=== PATIENT | female | born 1955 | race Caucasian/White ===

== ENCOUNTER → 2018-01-31 | Outpatient (CLI) | payer OTHER ==
[~2018-01-31] MED LIST: ATOR20 PO; Diovan Hct 80-1 EACH PO; ESCI10 PO; HUMIRA10 MG/0.2 SQ; Metformin HCl1000 MG PO
== END | disposition home or self-care (01) ==
LOC: PLD 07:19 → LAB SHORT 07:19
DX: D48.5 Neoplasm of uncertain behavior of skin (principal)
CPT/HCPCS: 88305

== ENCOUNTER → 2019-01-03 | Outpatient (CLI) | payer OTHER ==
[2019-01-03 14:15] LABS: Stool Occult Bld Immuno 1 Positive (NEGATIVE)
== END | disposition home or self-care (01) ==
LOC: LAB EV 06:30
PROVIDERS: Physician Assistant
DX: D64.9 Anemia, unspecified (principal)
CPT/HCPCS: 82274

== ENCOUNTER 2019-01-20 09:23 | Day surgery (SDC) | payer OTHER ==
[~2019-01-20] VITALS: Ht 162.6 cm; Wt 95.9 kg
[2019-01-20] MEDS ORDERED: ACET500 (10:16)
[2019-01-20] MEDS ORDERED: IRBESARTAN-HCT1 EACH (10:16)
[2019-01-20] MEDS ORDERED: BENZ100A (10:17)
== END 2019-01-20 12:40 | disposition home or self-care (01) ==
LOC: ORSCSDS 09:23
PROVIDERS: Internal Medicine Gastroenterology
PROC: 0D598ZZ Destruction of Duodenum, Via Natural or Artificial Opening Endoscopic (ICD-10-PCS; principal; 2019-01-20 11:00)
PROC: 0D568ZZ Destruction of Stomach, Via Natural or Artificial Opening Endoscopic (ICD-10-PCS; principal; 2019-01-20 11:00)
DX: R19.5 Other fecal abnormalities (principal); K31.811 Angiodysplasia of stomach and duodenum with bleeding; R11.0 Nausea; D50.9 Iron deficiency anemia, unspecified; R10.33 Periumbilical pain; K74.60 Unspecified cirrhosis of liver; E11.9 Type 2 diabetes mellitus without complications; I10 Essential (primary) hypertension; E78.5 Hyperlipidemia, unspecified; G47.30 Sleep apnea, unspecified; E66.01 Morbid (severe) obesity due to excess calories; Z68.37 Body mass index [BMI] 37.0-37.9, adult
CPT/HCPCS: 82947; J1980; J2250; J2704; J7120

== ENCOUNTER 2019-01-31 08:50 | Day surgery (SDC) | payer OTHER ==
[~2019-01-31] VITALS: Ht 162.6 cm; Wt 97.8 kg
[~2019-01-31 08:50] MED LIST changes: +ACET500; +BENZ100A; +IRBESARTAN-HCT1 EACH
[2019-01-31] MEDS ORDERED: OTEZLA30 MG (09:21)
[2019-01-31] MEDS ORDERED: IRON150C ×2 (09:21→09:22)
== END 2019-01-31 10:15 | disposition home or self-care (01) ==
LOC: ORSCSDS 08:50
PROVIDERS: Anesthesiology
PROC: 3E0R33Z Introduction of Anti-inflammatory into Spinal Canal, Percutaneous Approach (ICD-10-PCS; principal; 2019-01-31 10:00)
DX: M51.16 Intervertebral disc disorders with radiculopathy, lumbar region (principal); M53.3 Sacrococcygeal disorders, not elsewhere classified; E78.00 Pure hypercholesterolemia, unspecified; G47.33 Obstructive sleep apnea (adult) (pediatric); I10 Essential (primary) hypertension; E11.9 Type 2 diabetes mellitus without complications; E66.01 Morbid (severe) obesity due to excess calories; Z68.37 Body mass index [BMI] 37.0-37.9, adult; Z79.84 Long term (current) use of oral hypoglycemic drugs; Z79.899 Other long term (current) drug therapy
CPT/HCPCS: J1040

== ENCOUNTER 2019-02-21 11:46 | Day surgery (SDC) | payer OTHER ==
[~2019-02-21] VITALS: Ht 162.6 cm; Wt 95.8 kg
[~2019-02-21 11:46] MED LIST changes: +IRON150C; +OTEZLA30 MG
--- NOTE | 2019-02-21 12:34 | NUR ---
02/21/19 1234 Jose Luis Beal 1ST IV ATTEMPT IN RH UNSUCCESSFUL, ORSC.BDK 2ND IV ATTEMPT IN RW UNSUCCESSFUL, ORSC.STEVE 3RD IV ATTEMPT IN RAC SUCCESSFUL, ORSC.STEVE
== END 2019-02-21 14:03 | disposition home or self-care (01) ==
LOC: ORSCSDS 11:46
PROVIDERS: Internal Medicine Gastroenterology
PROC: 0D568ZZ Destruction of Stomach, Via Natural or Artificial Opening Endoscopic (ICD-10-PCS; principal; 2019-02-21 13:00)
DX: K31.819 Angiodysplasia of stomach and duodenum without bleeding (principal); R19.5 Other fecal abnormalities; D50.9 Iron deficiency anemia, unspecified; K74.69 Other cirrhosis of liver; K76.6 Portal hypertension; K31.89 Other diseases of stomach and duodenum; E11.9 Type 2 diabetes mellitus without complications; G47.33 Obstructive sleep apnea (adult) (pediatric)
CPT/HCPCS: 82947; J2704; J7120

== ENCOUNTER → 2019-05-20 | Outpatient (CLI) | payer MEDICARE ==
[2019-05-23 14:23] LABS: Stool Occult Bld Immuno 1 Positive (NEGATIVE); Stool Occult Bld Immuno 2 Positive (NEGATIVE)
== END | disposition home or self-care (01) ==
LOC: LAB 12:30 → LAB SHORT 12:30
PROVIDERS: Internal Medicine Gastroenterology
DX: D50.9 Iron deficiency anemia, unspecified (principal)
CPT/HCPCS: 82274

== ENCOUNTER 2019-09-17 07:34 | Day surgery (SDC) | payer MEDICARE, BC ==
[~2019-09-17] VITALS: Ht 162.6 cm; Wt 92.9 kg
[2019-09-17] MEDS ORDERED: AZELASTINE137 MCG/0. (08:33)
[2019-09-17] MEDS ORDERED: SPIR50 PO (08:34)
== END 2019-09-17 08:25 | disposition home or self-care (01) ==
LOC: ORSCSDS 07:34
PROVIDERS: Anesthesiology
PROC: 3E0R33Z Introduction of Anti-inflammatory into Spinal Canal, Percutaneous Approach (ICD-10-PCS; principal; 2019-09-17 08:30)
DX: M51.16 Intervertebral disc disorders with radiculopathy, lumbar region (principal); M53.3 Sacrococcygeal disorders, not elsewhere classified; E11.9 Type 2 diabetes mellitus without complications; I10 Essential (primary) hypertension; E78.00 Pure hypercholesterolemia, unspecified; G47.33 Obstructive sleep apnea (adult) (pediatric); Z79.84 Long term (current) use of oral hypoglycemic drugs; Z79.899 Other long term (current) drug therapy
CPT/HCPCS: J1040; J7040

== ENCOUNTER → 2020-02-22 | Outpatient (CLI) | payer MEDICARE, BC ==
[~2020-02-22] MED LIST changes: +AZELASTINE137 MCG/0.; +SPIR50 PO
[2020-02-23 13:05] LABS: Microalb/Creat Ratio UR, Rand 12.768 mg/g (0.000-30.000); Microalbumin, Random Urine 14.3 mg/L (0.000-20.000)
== END ==
LOC: LAB SHORT 17:20 → LAB 17:20
PROVIDERS: Family Medicine
DX: I10 Essential (primary) hypertension (principal)
CPT/HCPCS: 82043; 82570

== ENCOUNTER → 2021-09-20 | Outpatient (CLI) | payer MEDICARE, BC ==
[2021-09-20 08:42] LABS: BASOPHILS ABSOLUTE AUTO 0.06 K/mm3 (0.00-0.23); BASOPHILS PERCENT AUTO 1 % (0-2); EOSINOPHILS ABSOLUTE AUTO 0.17 K/mm3 (0.00-0.68); EOSINOPHILS PERCENT AUTO 2 % (0-6); Hematocrit 36.3 % (33.0-51.0); Hemoglobin 11.7 g/dL (11.5-16.0); IMMATURE GRAN ABSOLUTE AUTO 0.02 K/mm3 (0.00-0.10); IMMATURE GRAN PERCENT AUTO 0 % (0-1); LYMPHOCYTES ABSOLUTE AUTO 0.95 K/mm3 (0.84-5.20); LYMPHOCYTES PERCENT AUTO 9 % (21-46); MONOCYTES ABSOLUTE AUTO 0.68 K/mm3 (0.16-1.47); MONOCYTES PERCENT AUTO 7 % (4-13); Mean Corpuscular HGB 29.1 pg (26.0-34.0); Mean Corpuscular HGB Conc 32.2 g/dL (31.5-36.5); Mean Corpuscular Volume 90 fL (80-100); Mean Platelet Volume 10.5 fL (9.1-12.4); NEUTROPHILS ABSOLUTE AUTO 8.22 K/mm3 (1.96-9.15); NEUTROPHILS PERCENT AUTO 81 % (41-73); Platelet Count 112 K/mm3 (150-400); RDW Coefficient Variation 17.2 % (11.7-14.2); RDW Standard Deviation 56.5 fL (35.1-46.3); Red Blood Cell Count 4.02 M/mm3 (3.80-5.20)
[2021-09-20 09:01] LABS: Albumin, Blood 3.2 g/dL (3.4-5.0); Albumin/Globulin Ratio 0.8 (0.8-1.8); Bun/Creatinine Ratio 17.7 (12.0-20.0); Calcium, Blood 8.6 mg/dL (8.5-10.1); Creatinine, Blood 1.3 mg/dL (0.40-1.00); Globulin, Blood 3.9 g/dL (2.2-4.0); Potassium, Blood 4.4 mmol/L (3.5-5.5); Total Protein, Blood 7.1 g/dL (6.4-8.2)
== END | disposition home or self-care (01) ==
LOC: LAB 08:38 → LAB SHORT 08:38
PROVIDERS: Physician Assistant Medical
DX: K80.20 Calculus of gallbladder without cholecystitis without obstruction (principal); R11.0 Nausea
CPT/HCPCS: 80053; 83690; 85025

== ENCOUNTER → 2021-11-22 | Outpatient (CLI) | payer MEDICARE, BC | END | disposition home or self-care (01) | LOC: LAB SHORT 09:09 | DX: R23.4 Changes in skin texture (principal) | CPT/HCPCS: 88305 ==

== ENCOUNTER 2022-03-15 09:21 | Day surgery (SDC) | payer MEDICARE, BC ==
[2022-03-15] MEDS ORDERED: HYDROCHLOROTH12.5 MG PO (11:15)
[2022-03-15] MEDS ORDERED: MIDO5 PO (11:18)
[2022-03-15] MEDS ORDERED: ONDA4ODT MM (11:18)
[2022-03-15] MEDS ORDERED: FUROSEMIDE20 MG PO (11:19)
[2022-03-15] MEDS ORDERED: OXYC5 PO (11:19)
[2022-03-15] MEDS ORDERED: POTCHL20ER PO (11:20)
[2022-03-15] MEDS ORDERED: Protopic100 G1 TOP (11:22)
== END 2022-03-15 12:35 | disposition home or self-care (01) ==
LOC: US 09:21 → ATC 09:21 → US 03-17 09:00
DX: K74.60 Unspecified cirrhosis of liver (principal); R18.8 Other ascites
CPT/HCPCS: 49083; 87070; 87075; 87205; 96365; P9046

== ENCOUNTER 2022-04-12 09:19 | Emergency (ER) | payer MEDICARE, BC ==
[~2022-04-12] VITALS: Ht 162.6 cm; Wt 99.8 kg
[~2022-04-12 09:19] MED LIST changes: +FUROSEMIDE20 MG PO; +HYDROCHLOROTH12.5 MG PO; +MIDO5 PO; +ONDA4ODT MM; +OXYC5 PO; +POTCHL20ER PO; +Protopic100 G1 TOP
[2022-04-12 10:02] LABS: BASOPHILS ABSOLUTE AUTO 0.05 K/mm3 (0.00-0.23); BASOPHILS PERCENT AUTO 1 % (0-2); EOSINOPHILS PERCENT AUTO 1 % (0-6); Hemoglobin 11.4 g/dL (11.5-16.0); IMMATURE GRAN ABSOLUTE AUTO 0.05 K/mm3 (0.00-0.10); IMMATURE GRAN PERCENT AUTO 1 % (0-1); LYMPHOCYTES ABSOLUTE AUTO 1.15 K/mm3 (0.84-5.20); LYMPHOCYTES PERCENT AUTO 13 % (21-46); MONOCYTES ABSOLUTE AUTO 0.75 K/mm3 (0.16-1.47); MONOCYTES PERCENT AUTO 8 % (4-13); Mean Corpuscular HGB 33.5 pg (26.0-34.0); Mean Corpuscular HGB Conc 32.6 g/dL (31.5-36.5); Mean Corpuscular Volume 103 fL (80-100); NEUTROPHILS ABSOLUTE AUTO 6.86 K/mm3 (1.96-9.15); NEUTROPHILS PERCENT AUTO 77 % (41-73); Platelet Count 84 K/mm3 (150-400); RDW Coefficient Variation 17.2 % (11.7-14.2); RDW Standard Deviation 64.3 fL (35.1-46.3); White Blood Cell Count 8.96 K/mm3 (4.00-11.30)
[2022-04-12 10:24] LABS: Albumin, Blood 2.4 g/dL (3.4-5.0); Albumin/Globulin Ratio 0.6 (0.8-1.8); Bilirubin, Total 4.9 mg/dL (0.1-1.0); Bun/Creatinine Ratio 18.3 (12.0-20.0); Calcium, Blood 8.7 mg/dL (8.5-10.1); Creatinine, Blood 0.76 mg/dL (0.40-1.00); Globulin, Blood 3.9 g/dL (2.2-4.0); Potassium, Blood 4.2 mmol/L (3.5-5.5); Total Protein, Blood 6.3 g/dL (6.4-8.2)
== END 2022-04-12 15:12 | disposition home or self-care (01) ==
LOC: ER 09:19
PROVIDERS: Student in an Organized Health Care Education/Training Program
DX: S00.511A Abrasion of lip, initial encounter (principal); M79.605 Pain in left leg; R18.8 Other ascites; I10 Essential (primary) hypertension; E11.9 Type 2 diabetes mellitus without complications; W18.30XA Fall on same level, unspecified, initial encounter; Z79.899 Other long term (current) drug therapy
CPT/HCPCS: 36415; 49083; 70450; 71045; 80053; 84484; 85025; 93005; 93010; A9270

== ENCOUNTER 2022-04-28 08:17 | Day surgery (SDC) | payer MEDICARE, BC | END 2022-04-28 11:20 | disposition home or self-care (01) | LOC: US 08:17 → ATC 08:17 → US 09:00 → ATC 11:20 → US 06-29 09:00 | DX: R18.8 Other ascites (principal); K74.60 Unspecified cirrhosis of liver; E11.9 Type 2 diabetes mellitus without complications; I10 Essential (primary) hypertension; E78.5 Hyperlipidemia, unspecified; G47.33 Obstructive sleep apnea (adult) (pediatric) | CPT/HCPCS: 49083; 96365; P9046 ==

== ENCOUNTER 2022-05-12 08:24 | Day surgery (SDC) | payer MEDICARE, BC | END 2022-05-12 11:09 | disposition home or self-care (01) | LOC: US 08:24 → ATC 08:24 → US 09:00 → ATC 11:09 | DX: K74.60 Unspecified cirrhosis of liver (principal); R18.8 Other ascites; Z79.84 Long term (current) use of oral hypoglycemic drugs; E11.9 Type 2 diabetes mellitus without complications; E78.5 Hyperlipidemia, unspecified; E66.01 Morbid (severe) obesity due to excess calories; G47.33 Obstructive sleep apnea (adult) (pediatric); I10 Essential (primary) hypertension | CPT/HCPCS: 49083; 96365; P9047 ==

== ENCOUNTER → 2022-05-12 | Outpatient (CLI) | payer MEDICARE, BC | LOC: LAB SHORT 09:07 → LAB 09:07 | DX: N39.0 Urinary tract infection, site not specified (principal) | CPT/HCPCS: 87077; 87086; 87186 ==

== ENCOUNTER 2022-05-26 08:27 | Day surgery (SDC) | payer MEDICARE, BC ==
--- NOTE | 2022-05-26 10:49 | NUR ---
PATIENT BROUGHT IN AND IV STARTED. REPORT FROM ULTRASOUND CAME BACK AND SHE ONLY HAD 4.2 L REMOVED. NO ALBUMIN NEEDED TODAY AFTER ALL. IV DC'D. NO ADDITIONAL CHARGES TO ACCOUNT
== END 2022-05-26 10:10 | disposition home or self-care (01) ==
LOC: US 08:27
DX: R18.8 Other ascites (principal); K74.60 Unspecified cirrhosis of liver
CPT/HCPCS: 49083

== ENCOUNTER 2022-06-09 08:53 | Day surgery (SDC) | payer MEDICARE, BC | END 2022-06-09 23:08 | disposition home or self-care (01) | LOC: US 08:53 | DX: K74.60 Unspecified cirrhosis of liver (principal); R18.8 Other ascites | CPT/HCPCS: 76705 ==

== ENCOUNTER 2022-06-19 13:33 | Day surgery (SDC) | payer MEDICARE, BC | END 2022-06-19 22:00 | disposition home or self-care (01) | LOC: US 13:33 | DX: K74.60 Unspecified cirrhosis of liver (principal); R18.8 Other ascites | CPT/HCPCS: 76705 ==

== ENCOUNTER 2022-11-15 15:12 | Day surgery (SDC) | payer MEDICARE, BC ==
[~2022-11-15 15:12] MED LIST changes: -OTEZLA30 MG; +OTEZLA30 MG PO
== END 2022-11-15 22:54 | disposition home or self-care (01) ==
LOC: US 15:12
DX: J90 Pleural effusion, not elsewhere classified (principal)
CPT/HCPCS: 71046

== ENCOUNTER 2022-11-16 18:32 | Inpatient (IN) | payer MEDICARE, BC ==
[~2022-11-16] VITALS: Ht 162.6 cm; Wt 91.9 kg
[2022-11-16 19:27] LABS: BASOPHILS ABSOLUTE AUTO 0.03 K/mm3 (0.00-0.23); BASOPHILS PERCENT AUTO 0 % (0-2); EOSINOPHILS ABSOLUTE AUTO 0.17 K/mm3 (0.00-0.68); EOSINOPHILS PERCENT AUTO 1 % (0-6); Hematocrit 33.9 % (33.0-51.0); Hemoglobin 11.7 g/dL (11.5-16.0); IMMATURE GRAN ABSOLUTE AUTO 0.29 K/mm3 (0.00-0.10); IMMATURE GRAN PERCENT AUTO 2 % (0-1); LYMPHOCYTES ABSOLUTE AUTO 0.89 K/mm3 (0.84-5.20); LYMPHOCYTES PERCENT AUTO 7 % (21-46); MONOCYTES PERCENT AUTO 14 % (4-13); Mean Corpuscular HGB 34.9 pg (26.0-34.0); Mean Corpuscular HGB Conc 34.5 g/dL (31.5-36.5); Mean Corpuscular Volume 101 fL (80-100); Mean Platelet Volume 11.3 fL (9.1-12.4); NEUTROPHILS ABSOLUTE AUTO 10.29 K/mm3 (1.96-9.15); NEUTROPHILS PERCENT AUTO 76 % (41-73); RDW Coefficient Variation 17.6 % (11.7-14.2); RDW Standard Deviation 63.7 fL (35.1-46.3); Red Blood Cell Count 3.35 M/mm3 (3.80-5.20); White Blood Cell Count 13.57 K/mm3 (4.00-11.30)
[2022-11-16 19:33] LABS: Platelet Count 36 K/mm3 (150-400)
[2022-11-16 19:43] LABS: Albumin, Blood 2.1 g/dL (3.4-5.0); Albumin/Globulin Ratio 0.5 (0.8-1.8); Creatinine, Blood 0.65 mg/dL (0.40-1.00); Globulin, Blood 3.9 g/dL (2.2-4.0); Potassium, Blood 3.6 mmol/L (3.5-5.5)
[2022-11-16 20:53] LABS: International Normalized Ratio 1.53; Prothrombin Time Results 15.6 Sec (9.7-11.5)
[2022-11-16 22:09] LABS: Source, Urine Clean Catch
[2022-11-16 22:51] LABS: Appearance, Urine Hazy (Clear); Blood, Urine 2+ (Neg); Color, Urine Amber (P-Yellow); Glucose Qualitative, Urine Neg (Neg); Ketones, Urine Neg (Neg); Leukocyte Esterase, Urine Neg (Neg); Nitrite, Urine Neg (Neg); Protein, Urine 2+ (Neg); Specific Gravity, Urine 1.015 (1.003-1.022); Urobilinogen, Urine 4+ (Normal)
[2022-11-16 23:26] LABS: Bilirubin, Urine 3+ (Neg)
[2022-11-16 23:28] LABS: Bacteria Mod /hpf; Hyaline Casts 0-2 /lpf (0-2); Squamous Epithelial Cells Mod /hpf (Few)
--- NOTE | 2022-11-16 23:46 | NUR ---
ADMIT NOTE HANDOFF RECEIVED FROM PUNCHBOARD FILLING MACHINE OPERATOR YASH. PT ARRIVED TO FLOOR VIA GURNEY. PERSONAL POSSESSIONS WITH PT. PT ORIENTED TO UNIT. CALL BUTTON WITHIN REACH
[2022-11-17] MEDS ORDERED: GABA100 PO (00:52)
[2022-11-17] MEDS ORDERED: DOCU100 PO (00:52)
[2022-11-17] MEDS ORDERED: BUPR100 PO (00:53)
[2022-11-17] MEDS ORDERED: AZELASTINE137 MCG/01 (00:54)
--- NOTE | 2022-11-17 05:09 | NUR ---
SHIFT SUMMARY ADMITTED FOR RUQ PAIN. HYPOXIA. HX OF STEWART CIRRHOSIS WELL. FULL CODE. POSSIBLE RIGHT PLEURAL EFFUSION. PLAN IS FOR THORACENTESIS. SURGICAL CONSULT HAS BEEN CALLED FOR CHOLECYSTITIS EVAL. IV ANTIB RX ARE SCHEDULED. MONITORING LABS. STANDBY ASSIST TO BSC, SHE IS WEAK AND UNSTEADY ON HER FEET. REGULAR DIET. 3 LPM O2 AT BASELINE. TELEMETRY: NSR @ 77 BPM. SHE IS A&O X4. BLE EDEMA NOTED. POSSIBLE UTI. ACHS CBGS, HER DM2 IS CONTROLLED BY DIET AT HOME.
[2022-11-17 05:51] LABS: Hematocrit 31.1 % (33.0-51.0); Hemoglobin 10.7 g/dL (11.5-16.0); Mean Corpuscular HGB 34.6 pg (26.0-34.0); Mean Corpuscular HGB Conc 34.4 g/dL (31.5-36.5); Mean Corpuscular Volume 101 fL (80-100); Mean Platelet Volume 11.3 fL (9.1-12.4); RDW Coefficient Variation 17.5 % (11.7-14.2); RDW Standard Deviation 63.7 fL (35.1-46.3); Red Blood Cell Count 3.09 M/mm3 (3.80-5.20); White Blood Cell Count 8.22 K/mm3 (4.00-11.30)
[2022-11-17 06:02] LABS: Platelet Count 33 K/mm3 (150-400)
[2022-11-17 06:14] LABS: Albumin/Globulin Ratio 0.6 (0.8-1.8); Bun/Creatinine Ratio 39.3 (12.0-20.0); Calcium, Blood 8.2 mg/dL (8.5-10.1); Creatinine, Blood 0.61 mg/dL (0.40-1.00); Globulin, Blood 3.4 g/dL (2.2-4.0); International Normalized Ratio 1.44; Potassium, Blood 3.9 mmol/L (3.5-5.5); Prothrombin Time Results 14.8 Sec (9.7-11.5); Total Protein, Blood 5.4 g/dL (6.4-8.2)
--- NOTE | 2022-11-17 10:17 | NUR ---
PAIN MEDS Per V.O. from Dr. Holloway, change current oxycodone to 5-10 mg q4 PRN for severe pain and add 1-2 mg Morphine IV prn for breakthrough severe pain. Orders updated.
--- NOTE | 2022-11-17 10:45 | NUR ---
Upon receiving a referral for spiritual care, I visit patient. Patient is immediately tearful and tells me that she feels she is dying within the days or so and has concerns about her future and about how her son Andre will do upon her . Her friends Merari and Wilbur arrive and jump into the conversation. I explore patient's spiritual beliefs, her specific worries about her son and the fears that are sreaming the loudest. I normalize her fears and feelings, listen empathically, and provide anxiety containment, theological insights and prayer. Patient responded well and showed signs of increased peace. I will continue to remain available to patient and family.
--- NOTE | 2022-11-17 11:40 | NUR ---
DIET ORDER NPO THIS AM PER DR. HARRISON FOR POSSIBLE LAP GEN. SINCE DISCUSSION WITH PATIENT, LAP GEN IS NOT HAPPENING. PATIENT OK TO EAT. BACK TO REGULAR DIET INITIALLY ORDERED.
[2022-11-17 13:43] LABS: Mean Platelet Volume 10.7 fL (9.1-12.4); Platelet Count 54 K/mm3 (150-400)
[2022-11-17 14:48] LABS: Automated BF RBC Count 0.015 M/mm3 (0-0); Automated BF WBC Count 0.844 K/mm3 (0-999)
[2022-11-17 14:49] LABS: Body Fluid WBC Count 844 /mm3 (0-999); RBC Count, Body Fluid 15000 /mm3 (0-0)
[2022-11-17 14:56] LABS: Glucose, Body Fluid 123 mg/dL
[2022-11-17 15:22] LABS: Protein, Body Fluid 1.1 g/dL
--- NOTE | 2022-11-17 15:35 | NUR ---
ARRIVED TO ROOM, DR LUCIANO AT THE BEDSIDE SPEAKING WITH FAMILY AND PT ABOUT POC. PT AND FAMILY HAVE DECIDED TO GO COMFORT AND HOSPICE ON DISCHARGE. PROVIDED EDUCATION ON WHAT HOSPICE PHILOSOPHY AND SERVICES. SON WITH MANY QUESTIONS ABOUT WHEN PT WILL BE DISCHARGED AND WHEN WILL HOSPICE BE ABLE TO ADMIT THE PT. AT THIS TIME, [facility] HAS NO PREFERENCE ON WHICH HOSPICE AGENCY TO USE, INFORMATION ON EACH WILL BE PROVIDED. SON IS ASKING WHEN THE PT WILL BE DCD AND ADVISED THAT IT WILL DEPEND ON AVIAIABILITY OF THE HOSPICE AGENCY AVIAIABILITY TO ADMIT. ADVISED I WILL HAVE CM FOLLOW UP WITH THEM WITH THIS INFORMATION AND THEN THEY CAN DECIDE HOW TO MOVE FORWARD. UPDATED MANUELITO ON CONVERSATION AND FAMIULY/PT WISHES, SHE WILL FOLLOW UP. PALLIATIVE CARE WILL CONTINUE TO FOLLOW.
[2022-11-17 15:37] LABS: Lactate Dehydrogenase, Body Fl 170 U/L
[2022-11-17 15:47] LABS: Appearance, Body Fluid Hazy (Clear); Color, Body Fluid Amber (None-Yellow); Total Cell Count, Body Fluid 100
[2022-11-17 16:00] LABS: pH, Body Fluid 7.9
--- NOTE | 2022-11-17 17:05 | NUR ---
Shift Summary A/Ox4 this morning, mentation has declined. Had thoracentesis to R chest after 1 unit platelets given. Breath sounds improved bilaterally. Patient requested to transition to comfort care given ESLD, son at bedside and agreed with plan. C/O severe back and RUQ pain, medicated per EMAR. Dyspneic with exertion, increased work of breathing with roxanol was given. On 3-4L oxygen via NC. Restless and uncomfortable, frequent repositioning. Family and friends are thankful for care given. Tele: NSR 80's, now d/c'd. Patient resting comfortably in bed at this time. WCTM.
--- NOTE | 2022-11-17 18:28 | NUR ---
"Spiritual Care Visit | Comfort Care Pt. is mostly non-responsive. Family members and friends are present and welcome my visit. Facilitated a short life review. Family verbalized they had seen chaplain Avendaño in the morning. Established rapport and prayed for the Pt. and family at bedside. AFamily verbalized gratitude for the spiritual care visit."
--- NOTE | 2022-11-18 06:35 | NUR ---
MANAGER OB SUMMARY PT ON COMFORT CARE. PT HAS BEEN LETHARGIC T/O THE SHIFT. WILL RESPOND TO VERBAL STIMULI AND FOLLOW DIRECTIONS WHEN PROVIDING DIRECT CARE. PT OPENED MOUTH AND TURNED BODY IN RESPONSE TO COMMANDS. PT DENIED BEING IN PAIN FOR MOST OF THE NIGHT AND REFUSED PAIN MEDS UNTIL NEW CLIENT BANKING SERVICES CLERK. AUDIBLE RATTLE IN THROAT/CHEST CAN BE HEARD AND PT HAS OCCASIONAL PERIODS OF APNEIC BREATHING; SUCTION FOR EXCESS SECRETIONS PERFORMED. MED W/ROXANOL THIS AM AND SL ATROPINE DROPS. HELD PRILOSEC; PT TOO LETHARGIC TO SWALLOW MEDS. PT LEGS/BODY WEAPING FLUID; COMPLETE BED/GOWN CHANGE. CONT W/Q4 COMFORT ASSESSMENTS AND Q2 TURNING. CALL LIGHT ACCESSIBLE. BED LOCKED/LOW. RCVD PHONE CALLS FROM SON, ZAYRA; AND SISTER PALMA; UPDATED ON PT CONDITION; ADVISED WOULD BE ALLOWED TO SEE PT OUTSIDE OF VISITING HOURS DUE TO COMFORT CARE STATUS.
--- NOTE | 2022-11-18 17:49 | NUR ---
SHIFT SUMMARY: COMFORT CARE PATIENT. PT HAS BEEN VERY LETHARGIC THROUGHOUT SHIFT. PT HAS HAD MANY VISITORS THROUGHOUT DAY. PT RESPONDS TO VERBAL STIMULI. WAS ABLE TO GET PT TO OPEN EYES FOR A FEW SECONDS EACH TIME I WOULD SAY HER NAME OR ASK A QUESTION. PT STATED TWICE THAT SHE DOES NOT HAVE ANY PAIN BUT STARTED GETTING RESTLESS AROUND 1600. PROVIDED ROXANOL AND ATROPINE DROPS. EDUCATED FAMILY THAT PAIN MEDICATION IS PRN AND WHAT TO WATCH FOR FOR PAIN. HAD TO REMIND FAMILY SEVERAL TIMES THAT MEDICATION WAS " NEEDED" AND NOT SCHEDULED. FAMILY NOT HAPPY THAT MEDICATION IS NOT SCHEDULED. PT HAD RATTLE SOUNDS IN THROAT/CHEST THIS AM. APPLIED SCOPOLAMINE PATCH BEHIND R. EAR WHICH APPEARS TO BE HELPING W/SECRETIONS. PT HAS LARGE RED AREA ON COCCYX. ROTATED PT SEVERAL TIMES THIS SHIFT. PT HAS NOT HAD ANY URINE OUT THIS SHIFT OR ON BRAZER INDUCTION. PT HAS LOTS OF SWELLING THROUGHOUT BODY BUT MOST IN BLE. LEGS WEAPING AND CHUCKS CHANGED. CALL LIGHT IN REACH. WILL CONTINUE TO MONITOR.
--- NOTE | 2022-11-19 06:32 | NUR ---
INDEPENDENT LIVING INSTRUCTOR SUMMARY CONT WITH COMFORT CARE. PT HAS BEEN MOSTLY UNRESPONSIVE T/O THE SHIFT. NOTED GRIMACING WITH THE LIGHT AND BITING DOWN WITH SUCTIONING. PT WILL LIFT EYEBROWS IN RESPONSE TO HER NAME SOMETIMES. PT HAS BEEN UNABLE TO SAY IF SHE HAS PAIN. OBSERVED PT HAVE SUDDEN JERKING MOVEMENTS WITH GRIMACING. MED W/ROXANOL PER EMAR. PT FAMILY AT BEDSIDE T/O THE NIGHT. THEY CONT TO EXPRESS DESIRE FOR PT NOT TO BE IN PAIN. DISCUSSED PT PROGRESSION AND SIGNS OF DISCOMFORT. SUCTIONING AT BEDSIDE; PT SECRETIONS ARE AUDIBLE. SCOPOLOMINE PATCH IN PLACE. NO URINE OUTPUT THIS SHIFT.
--- NOTE | 2022-11-19 17:17 | NUR ---
SHIFT SUMMARY: COMFORT CARE PATIENT. PT CURRENTLY 5 BREATHS/MIN W/APNEIC BREATHS AND GURGLING. SUCTIONED PATIENT MULTIPLE TIMES THIS SHIFT. PT WOULD BITE DOWN ON SUCTION TUBE THIS AM BUT WOULD NOT RESPOND TO IT THIS AFTERNOON. PT RECIVED SEVERAL DOSES OF ROXANOL AND A DOSE OF IV ATIVAN. PT HAS BEEN RESTING COMFORTABLY IN BED THROUGHOUT SHIFT WITH MANY FAMILY/FRIENDS AT BEDSIDE. ASSESSING Q30 MIN DUE TO RAPID DECLINE. BED IN LOWEST POSITION. WILL CONTINUE TO MONITOR.
--- NOTE | 2022-11-20 06:09 | NUR ---
SOLE TRIMMER SUMMARY CONT WITH COMFORT CARE. FAMILY AT BEDSIDE AT START OF SHIFT. PT UNRESPONSIVE, BREATHING APNEIC. FAMILY/SON CONT TO EXPRESS DESIRE THAT PT NOT BE IN ANY PAIN AND COMFORT MEDICATIONS BE GIVEN. PT WILL HAVE MOMENTS OF BRIEF TENSING/JERKING MOVEMENTS. SCOPOLIMINE PATCH IN PLACE; SECRETIONS AUDIBLE; INTERMITTANT SUCTION IN PLACE. MED P/EMAR. CONT W/Q4 COMFORT ASSESSMENTS AND Q2 REPOSITIONING. WILL CONT TO MONITOR.
--- NOTE | 2022-11-20 18:22 | NUR ---
PT WAS KEPT COMFORTABLE WITH FRIENDS AT BEDSIDE TODAY AND WAS TURNED Q2HRS. PT WAS UNRESPONSIVE AND PT PAST AT 1515. ALL PERSONAL BELONGINGS WERE COLLECTED PRIOR AND PT WAS TRANSPORTED OUT VIA [facility] AT 1820.
== END 2022-11-20 15:15 | DRG 186 ==
LOC: ER 18:32 → MEDS 22:42
PROVIDERS: Emergency Medicine; Family Medicine; Student in an Organized Health Care Education/Training Program; ADMIT Internal Medicine
PROC: 3E03329 Introduction of Other Anti-infective into Peripheral Vein, Percutaneous Approach (ICD-10-PCS; principal; 2022-11-16)
PROC: 0W993ZX Drainage of Right Pleural Cavity, Percutaneous Approach, Diagnostic (ICD-10-PCS; 2022-11-17)
PROC: 30233R1 Transfusion of Nonautologous Platelets into Peripheral Vein, Percutaneous Approach (ICD-10-PCS; 2022-11-17)
DX: J90 Pleural effusion, not elsewhere classified (principal); J96.21 Acute and chronic respiratory failure with hypoxia; E87.1 Hypo-osmolality and hyponatremia; Z51.5 Encounter for palliative care; Z66 Do not resuscitate; K74.60 Unspecified cirrhosis of liver; I10 Essential (primary) hypertension; K75.81 Nonalcoholic steatohepatitis (NASH); D69.59 Other secondary thrombocytopenia; E80.6 Other disorders of bilirubin metabolism; E11.9 Type 2 diabetes mellitus without complications; Z28.21 Immunization not carried out because of patient refusal; Z90.89 Acquired absence of other organs; Z90.710 Acquired absence of both cervix and uterus; Z98.890 Other specified postprocedural states; Z79.899 Other long term (current) drug therapy
CPT/HCPCS: 32555; 36415; 36430; 71045; 71046; 71260; 76705; 80053; 81001; 82945; 82947; 83615; 83690; 83986; 84157; 85025; 85027; 85049; 85610; 85730; 86900; 86901; 87070; 87086; 87205; 88108; 88305; 89051; 96365-59; 96375; 99284-25; A9270; J0696; J1170; J2060; J2270; J7050; P9035; Q9967